=== PATIENT | male | born 1980 ===

== ENCOUNTER 2018-09-10 21:06 | Emergency (ER) | payer SELFPAY ==
[~2018-09-10] VITALS: Ht 170.2 cm; Wt 65.8 kg
--- NOTE | 2018-09-10 21:25 | NUR ---
Pt bib friend. Friend dropped him off at [facility] [place]. Pt a/o x4 and is able to verbalize complaints. Pt had an accident at work where he accidentally hit a stone mortar (bowl) hard to where the area of the right hand/knuckles are red and pt is experiencing pain P/S 7/10. Pt is having limited ROM in digits 2-5 of the right hand.
--- NOTE | 2018-09-10 21:40 | NUR ---
Dr. Mo at bedside for MSE
[2018-09-10] MEDS ORDERED: HYDROCODONE/APAP 10-325 MG TABLET PO ONE (21:45)
[2018-09-10] MEDS ORDERED: LIDOCAINE HCL 1% 20 ML VIAL IJ ONE (21:45)
[2018-09-10] MEDS ORDERED: ONDANSETRON ODT 4 MG TAB.RAPDIS SL ONE (21:45)
[2018-09-10] MEDS ORDERED: ONDANSETRON ODT 4 MG TAB.RAPDIS ONE (21:51)
[2018-09-10] MEDS ORDERED: LIDOCAINE HCL 1% 20 ML VIAL ONE (21:51)
[2018-09-10] MEDS ORDERED: HYDROCODONE/APAP 10-325 MG TABLET ONE (21:51)
--- NOTE | 2018-09-10 23:46 | NUR ---
Patient discharged to home in stable conditon. Written and verbal after care instructions given. Patient verbalizes understanding of instructions. Pt ambulated out of dept with steady gait.
[2018-09-10 23:48] VITALS: BP 135/70
== END 2018-09-10 23:49 | disposition home or self-care (01) ==
LOC: ER 21:07
DX: M20.011 Mallet finger of right finger(s) (principal); F17.200 Nicotine dependence, unspecified, uncomplicated; W23.0XXA Caught, crushed, jammed, or pinched between moving objects, initial encounter; Y93.89 Activity, other specified; Y92.89 Other specified places as the place of occurrence of the external cause; Y99.8 Other external cause status
CPT/HCPCS: 26770; 73140; 99284; J3490; A4663; Q0162